=== PATIENT | female | born 1985 | race Caucasian/White ===

== ENCOUNTER 2018-01-25 18:40 | Outpatient (CLI) | payer MEDICAID ==
[2018-01-25 19:19] LABS: ADD MAN DIFF? NO
[2018-01-25 19:22] LABS: WHITE BLOOD COUNT 13.6 10^3/ul (4.8-10.8)
[2018-01-25 19:22] LABS: BASOPHILS % 0.1 % (0.0-2.0); EOSINOPHILS # 0.1 10^3/ul (0.0-0.5); EOSINOPHILS % 0.6 % (0.0-7.0); HEMATOCRIT 35.8 % (37.0-47.0); HEMOGLOBIN 12.1 g/dl (12.0-16.0); LYMPHOCYTES # 3.4 10^3/ul (0.8-2.9); LYMPHOCYTES % 25.1 % (15.0-51.0); MEAN CORPUSCULAR HEMOGLOBIN 28.4 pg (29.0-33.0); MEAN CORPUSCULAR HGB CONC 33.8 g/dl (32.0-37.0); MEAN PLATELET VOLUME 11.2 fl (7.4-10.4); MONOCYTE # 1.1 10^3/ul (0.3-0.9); NEUTROPHIL # 8.9 10^3/ul (1.6-7.5); NEUTROPHILS % 65.5 % (39.0-77.0); PLATELET COUNT 190 10^3/UL (140-415); RED BLOOD COUNT 4.26 10^6/ul (4.20-5.40); RED CELL DISTRIBUTION WIDTH 13.3 % (11.5-14.5)
[2018-01-25 19:36] LABS: ADD UMIC YES; UR ASCORBIC ACID 40 mg/dL (NEGATIVE); UR BILIRUBIN (Dip) NEGATIVE (NEGATIVE); UR BLOOD (Dip) NEGATIVE (NEGATIVE); UR CLARITY CLEAR (CLEAR); UR COLOR YELLOW (YELLOW); UR GLUCOSE (Dip) NEGATIVE (NEGATIVE); UR KETONES (Dip) NEGATIVE (NEGATIVE); UR LEUKOCYTE ESTERASE (Dip) TRACE Leu/ul (NEGATIVE); UR MUCUS FEW /HPF (NONE SEEN); UR NITRITE (Dip) NEGATIVE (NEGATIVE); UR RBC 1 /HPF (0-5); UR SPECIFIC GRAVITY (Dip) 1.027 (1.003-1.030); UR SQUAMOUS EPITHELIAL CELL FEW /HPF (FEW); UR TOTAL PROTEIN (Dip) 1+ mg/dl (NEGATIVE); UR UROBILINOGEN (Dip) NEGATIVE (NEGATIVE); UR WBC 3 /HPF (0-5)
[2018-01-25 19:40] LABS: ALANINE AMINOTRANSFERASE 18 IU/L (13-69); ALBUMIN 3.7 g/dl (3.3-4.9); ALBUMIN/GLOBULIN RATIO 1.19; ALKALINE PHOSPHATASE 221 IU/L (42-121); ANION GAP 15 (8-16); ASPARTATE AMINO TRANSFERASE 16 IU/L (15-46); BLOOD UREA NITROGEN 11 mg/dl (7-20); CALCIUM 8.6 mg/dl (8.4-10.2); CARBON DIOXIDE 21 mmol/L (21-31); CHLORIDE 109 mmol/L (97-110); CREATININE 0.54 mg/dl (0.44-1.00); GLUCOSE 102 mg/dl (70-220); POTASSIUM 3.9 mmol/L (3.5-5.1); SODIUM 141 mmol/L (135-144); TOTAL PROTEIN 6.8 g/dl (6.1-8.1); URIC ACID 3.4 mg/dl (3.1-7.9)
[2018-01-25 19:42] LABS: INR 0.98; PROTIME 13.1 Sec (11.9-14.9)
[2018-01-25 19:43] LABS: PARTIAL THROMBOPLASTIN TIME 25.8 Sec (25.0-35.0)
== END 2018-01-25 21:40 | disposition home or self-care (01) ==
LOC: OBT 18:40 → L-D 18:42 → OBT 21:40
DX: O13.3 Gestational [pregnancy-induced] hypertension without significant proteinuria, third trimester (principal); Z3A.37 37 weeks gestation of pregnancy
CPT/HCPCS: 76815; 76818; 80053; 81001; 84560; 85025; 85384; 85610; 85730

== ENCOUNTER 2018-01-28 13:09 | Inpatient (IN) | payer MEDICAID ==
[2018-01-28] MEDS: LACTATED RINGER'S 1,000 ML IV ×2 (16:56→18:04)
[2018-01-28] MEDS ORDERED: METHYLERGONOVINE 0.2 MG INJ IM ×2 (17:00→23:30)
[2018-01-28] MEDS ORDERED: OXYTOCIN 30 UNITS/LR 500 ML IV ×2 (17:00→23:30)
[2018-01-28] MEDS ORDERED: BUTORPHANOL 2 MG INJ IV (17:00)
[2018-01-28] MEDS ORDERED: MISOPROSTOL 200 MCG TAB PR ×2 (17:00→23:30)
[2018-01-28] MEDS ORDERED: LIDOCAINE 1% (MPF) 30 ML INJ INJ (17:00)
[2018-01-28] MEDS: AMPICILLIN 2 GM/NS (PMX) 100 ML IV (17:03)
[2018-01-28 17:11] LABS: ADD MAN DIFF? NO
[2018-01-28 17:15] LABS: BASOPHILS % 0.2 % (0.0-2.0); EOSINOPHILS # 0.1 10^3/ul (0.0-0.5); EOSINOPHILS % 0.4 % (0.0-7.0); HEMATOCRIT 35.8 % (37.0-47.0); HEMOGLOBIN 12.2 g/dl (12.0-16.0); LYMPHOCYTES # 2.7 10^3/ul (0.8-2.9); LYMPHOCYTES % 19.2 % (15.0-51.0); MEAN CORPUSCULAR HEMOGLOBIN 28.9 pg (29.0-33.0); MEAN CORPUSCULAR HGB CONC 34.1 g/dl (32.0-37.0); MEAN CORPUSCULAR VOLUME 84.8 fl (82.0-101.0); MEAN PLATELET VOLUME 11.6 fl (7.4-10.4); NEUTROPHIL # 10.2 10^3/ul (1.6-7.5); NEUTROPHILS % 72.6 % (39.0-77.0); PLATELET COUNT 199 10^3/UL (140-415); RED BLOOD COUNT 4.22 10^6/ul (4.20-5.40); RED CELL DISTRIBUTION WIDTH 13.2 % (11.5-14.5)
[2018-01-28 17:15] LABS: WHITE BLOOD COUNT 14.1 10^3/ul (4.8-10.8)
[2018-01-28 17:35] LABS: ALANINE AMINOTRANSFERASE 20 IU/L (13-69); ALBUMIN 3.4 g/dl (3.3-4.9); ALBUMIN/GLOBULIN RATIO 1.06; ALKALINE PHOSPHATASE 213 IU/L (42-121); ANION GAP 16 (8-16); ASPARTATE AMINO TRANSFERASE 17 IU/L (15-46); BLOOD UREA NITROGEN 14 mg/dl (7-20); CALCIUM 8.9 mg/dl (8.4-10.2); CARBON DIOXIDE 21 mmol/L (21-31); CHLORIDE 108 mmol/L (97-110); GLUCOSE 71 mg/dl (70-220); POTASSIUM 4.1 mmol/L (3.5-5.1); SODIUM 141 mmol/L (135-144); TOTAL PROTEIN 6.6 g/dl (6.1-8.1); URIC ACID 3.2 mg/dl (3.1-7.9)
[2018-01-28 17:36] LABS: INR 0.95; PROTIME 12.8 Sec (11.9-14.9)
[2018-01-28 17:37] LABS: PARTIAL THROMBOPLASTIN TIME 27.2 Sec (25.0-35.0)
[2018-01-28 18:24] LABS: HEPATITIS B SURFACE ANTIGEN NEGATIVE (NEGATIVE)
[2018-01-28 18:36] LABS: HIV 1&2 ANTIBODY NEGATIVE (NEGATIVE)
[2018-01-28] MEDS: OXYTOCIN 30 UNITS/LR 500 ML IV ×2 (19:03→21:55)
[2018-01-28] MEDS ORDERED: AMPICILLIN 1 GM/NS (PMX) 50 ML IV (21:00)
[2018-01-28] MEDS: CARBOPROST 250 MCG INJ IM (21:25)
[2018-01-28] MEDS ORDERED: IBUPROFEN 600 MG TAB PO (22:00)
[2018-01-28 22:33] LABS: AMPHETAMINE/METHAMPHETAMINE Negative (NEGATIVE); BARBITURATES Negative (NEGATIVE); BENZODIAZEPINES Negative (NEGATIVE); CANNABINOIDS Negative (NEGATIVE); COCAINE Negative (NEGATIVE); OPIATES Negative (NEGATIVE)
[2018-01-28 22:36] LABS: ADD UMIC YES; UR ASCORBIC ACID NEGATIVE (NEGATIVE); UR BILIRUBIN (Dip) NEGATIVE (NEGATIVE); UR BLOOD (Dip) 2+ mg/dL (NEGATIVE); UR CLARITY CLEAR (CLEAR); UR COLOR STRAW (YELLOW); UR GLUCOSE (Dip) NEGATIVE (NEGATIVE); UR KETONES (Dip) TRACE mg/dL (NEGATIVE); UR LEUKOCYTE ESTERASE (Dip) NEGATIVE Leu/ul (NEGATIVE); UR NITRITE (Dip) NEGATIVE (NEGATIVE); UR RBC 6 /HPF (0-5); UR SPECIFIC GRAVITY (Dip) 1.009 (1.003-1.030); UR TOTAL PROTEIN (Dip) NEGATIVE (NEGATIVE); UR UROBILINOGEN (Dip) NEGATIVE (NEGATIVE); UR WBC 0 /HPF (0-5)
[2018-01-28] MEDS: LACTATED RINGER'S 1,000 ML IV* (23:01)
[2018-01-28] MEDS ORDERED: ZOLPIDEM 5 MG TAB PO (23:30)
[2018-01-28] MEDS ORDERED: HYDROCODONE/APAP (5/325) TAB PO ×2 (23:30)
[2018-01-28] MEDS ORDERED: CARBOPROST 250 MCG INJ IM (23:30)
[2018-01-28] MEDS: BENZOCAINE 20% 56 ML SPRAY TOP (23:55)
[2018-01-28] MEDS: WITCH HAZEL/GLYCERIN PAD PR (23:56)
[2018-01-28] MEDS: LANOLIN 7 GM TUBE TOP (23:56)
[2018-01-28] MEDS: CEPHALEXIN 500 MG CAP PO (23:57)
[2018-01-28] MEDS: IBUPROFEN 600 MG TAB PO (23:57)
[2018-01-29] MEDS: OXYTOCIN 30 UNITS/LR 500 ML IV (00:07)
[2018-01-29] MEDS: CEPHALEXIN 500 MG CAP PO ×4 (05:41→23:38)
[2018-01-29] MEDS: IBUPROFEN 600 MG TAB PO ×4 (05:41→23:38)
[2018-01-29] MEDS: LACTATED RINGER'S 1,000 ML IV* ×2 (07:01→15:01)
[2018-01-29 08:24] LABS: ADD MAN DIFF? NO
[2018-01-29 08:31] LABS: ABNORMAL IP MESSAGE 1; BASOPHILS % 0.2 % (0.0-2.0); EOSINOPHILS % 0.1 % (0.0-7.0); HEMATOCRIT 33.5 % (37.0-47.0); HEMOGLOBIN 11.5 g/dl (12.0-16.0); LYMPHOCYTES # 2.5 10^3/ul (0.8-2.9); LYMPHOCYTES % 13.2 % (15.0-51.0); MEAN CORPUSCULAR HEMOGLOBIN 28.8 pg (29.0-33.0); MEAN CORPUSCULAR HGB CONC 34.3 g/dl (32.0-37.0); MEAN CORPUSCULAR VOLUME 83.8 fl (82.0-101.0); MEAN PLATELET VOLUME 11.5 fl (7.4-10.4); MONOCYTE # 1.6 10^3/ul (0.3-0.9); MONOCYTES % 8.2 % (0.0-11.0); NEUTROPHIL # 14.8 10^3/ul (1.6-7.5); NEUTROPHILS % 77.5 % (39.0-77.0); PLATELET COUNT 173 10^3/UL (140-415); RED CELL DISTRIBUTION WIDTH 13.3 % (11.5-14.5)
[2018-01-29 08:31] LABS: WHITE BLOOD COUNT 19.1 10^3/ul (4.8-10.8)
[2018-01-29 08:33] LABS: POSITIVE DIFF @See below
[2018-01-29] MEDS: MAGNESIUM HYDROXIDE 30ML CUP PO ×2 (09:00→21:00)
[2018-01-29] MEDS: SENNA/DOCUSATE NA (8.6MG/50MG) TAB PO ×2 (09:00→21:00)
[2018-01-29 14:01] LABS: RAPID PLASMA REAGIN NONREACTIVE (NR)
[2018-01-29] MEDS: DIBUCAINE 1% 30 GM OINT PR (17:54)
[2018-01-30] MEDS: IBUPROFEN 600 MG TAB PO ×3 (05:22→17:40)
[2018-01-30] MEDS: CEPHALEXIN 500 MG CAP PO ×3 (05:22→17:40)
[2018-01-30] MEDS: SENNA/DOCUSATE NA (8.6MG/50MG) TAB PO (09:00)
[2018-01-30] MEDS: MAGNESIUM HYDROXIDE 30ML CUP PO (09:00)
[2018-01-30] MEDS: MEASLES,MUMPS,RUBELLA VACCINE INJ SC* (09:42)
[2018-01-30] MEDS: DIPHTH/TET/ACEL PERTUSS (ADULT) 0.5 ML VIAL IM* (09:42)
[2018-01-30] MEDS: VARICELLA VACCINE LIVE/PF 1,350 UNIT/0.5 ML ML SC* (09:42)
[2018-01-30 11:34] LABS: ADD MAN DIFF? NO
[2018-01-30 11:40] LABS: BASOPHILS % 0.2 % (0.0-2.0); EOSINOPHILS # 0.1 10^3/ul (0.0-0.5); EOSINOPHILS % 0.8 % (0.0-7.0); LYMPHOCYTES # 2.9 10^3/ul (0.8-2.9); LYMPHOCYTES % 22.5 % (15.0-51.0); MEAN CORPUSCULAR HEMOGLOBIN 28.5 pg (29.0-33.0); MEAN CORPUSCULAR HGB CONC 33.3 g/dl (32.0-37.0); MEAN CORPUSCULAR VOLUME 85.5 fl (82.0-101.0); MEAN PLATELET VOLUME 11.6 fl (7.4-10.4); MONOCYTE # 0.7 10^3/ul (0.3-0.9); MONOCYTES % 5.4 % (0.0-11.0); NEUTROPHILS % 69.9 % (39.0-77.0); PLATELET COUNT 180 10^3/UL (140-415); RED BLOOD COUNT 3.86 10^6/ul (4.20-5.40); RED CELL DISTRIBUTION WIDTH 13.7 % (11.5-14.5)
[2018-01-30 11:40] LABS: WHITE BLOOD COUNT 12.9 10^3/ul (4.8-10.8)
[2018-01-31 12:33] LABS: RUBELLA ANTIBODY - IGG 4.14 index
== END 2018-01-30 19:05 | disposition home or self-care (01) | DRG 775 ==
LOC: OBT 13:09 → L-D 13:10 → OBT 16:35 → L-D 16:30 → PP1 22:46
PROVIDERS: Obstetrics & Gynecology
PROC: 10E0XZZ Delivery of Products of Conception, External Approach (ICD-10-PCS; principal; 2018-01-28)
PROC: 0UQMXZZ Repair Vulva, External Approach (ICD-10-PCS; 2018-01-28)
PROC: 3E033VJ Introduction of Other Hormone into Peripheral Vein, Percutaneous Approach (ICD-10-PCS; 2018-01-28)
DX: O71.82 Other specified trauma to perineum and vulva (principal); Z3A.37 37 weeks gestation of pregnancy; Z37.0 Single live birth
CPT/HCPCS: 62319; 80053; 80307; 81001; 84560; 85025; 85384; 85610; 85730; 86592; 86703; 86762; 86850; 86900; 86901; 87340